=== PATIENT | female | born 1940 | race Caucasian/White ===

== ENCOUNTER 2019-11-22 10:26 | Outpatient (CLI) | payer MEDICARE, OTHER ==
--- NOTE | 2019-11-22 11:29 | SLEEP CARE CONSULTATION ---
Information from patient questionnaire entered by Jordana Greenberg. I have reviewed and concur with the information entered by Jordana Greenbreg. This document represents the service I personally performed and the decisions made by me, Nicolas Elizabeth MD, [facility]. History of Present Illness Service Date and Time: 11/22/2019 1026 Reason for Visit: New patient Chief Complaint: reports: Unrefreshed sleep, Snoring, Excessive daytime sleepiness, Fatigue Duration of Symptoms: long time Usual bedtime: 11 pm Time it takes to fall asleep: 30-60 mins Snores at night: Yes Observed to quit breathing while asleep: No Sleeps alone due to snoring: No Number of times waking at night: 2 Reasons for waking at night: reports: Snoring (sometimes), Bathroom Toss, Turn, or Twitch while sleeping: Yes Recalls having dreams: No Feels refreshed in the morning: No Morning headache: Yes Sleepy or fatigued during the day: Yes Takes day naps: Yes (sometimes) Dreams during day naps: No Prior sleep studies: No Additional HPI information: The patient is here mainly because her says she snore loudly. He has not seen her quit breathing. He uses a CPAP himself. The patient reports having some insomnia. She goes to bed at 11 pm and gets up at 9 am. - Parasomnia Symptoms Ever been unable to move upon waking from sleep: No Ever felt weak in the knees when startled or emotional: No Bothered by creepy, crawly, restless sensations in legs: Yes Problems with memory or concentration: Yes Subjective Initial [place] Sleepiness Scale score: 9 (in 2019) Past Medical History Past Medical History: reports: Arthritis Social History The patient's occupation is a Retired. Patient is and lives in [place]. Have you smoked in the past 12 months: No Cigarettes per day (20/pack): 20 Years of smokin Quit date: 1984 Smoking Pack Years: 30.0 Alcohol use: Yes Alcohol amount and frequency: 1 glass every couple of months Caffeine use: Yes Caffeine amount and frequency: 3 cups a day Family History Family history of sleep disordered breathing: Yes Family Hx Sleep Apnea: Sibling: Snoring Review of Systems Weight loss over past 5 years: 15 Cardiovascular: denies: high blood pressure, palpitations, chest pain, irregular heart rate or pulse, leg or foot swelling, have to sleep sitting up, other Respiratory: denies: shortness of breath, wheeze, sputum production, chronic cough, other Gastrointestinal: denies: heartburn, difficulty swallowing, nausea, vomitting, diarrhea, abdominal pain, other Urinary: denies: incontinence, frequency, urgency, impotence, other Neurological: denies: headaches, seizure, head trauma, disorientation, speech dysfunction, gait or balance problems, fainting or unconsciousness, other Psychiatric: denies: Attention Deficit Hyperactivity, anxiety, depression, mood disorder, claustrophobia, other Ear/Nose/Throat: reports: sinus problems, wisdom teeth removed Endocrine: reports: increased urination Musculoskeletal: reports: neck pain, back pain, muscle pain or cramping Immunologic: reports: sneezing, rash, itching Physical Exam Vital signs obtained and entered by: Deferred due to COVID-19 Height: 5 ft 3 in Weight: 176 lb Body Mass Index: 31.1 BMI Classification: Obese Impression and Plan IMPRESSION: 1. Obstructive Sleep Apnea-Hypopnea Syndrome, as suggested by history of loud and irregular snoring, unrefreshed sleep, nocturnal choking, and daytime hypersomnolence. Narrow oropharynx and obesity are common predisposing factors for obstructive sleep apnea-hypopnea syndrome. Pathophysiology of sleep- disordered breathing was discussed. I recommend proceeding to polysomnography to confirm the diagnosis and to assess severity. If she has significant sleep disordered breathing, a manual CPAP titration study will also be performed to find the optimal treatment pressure. I informed the patient of what the sleep studies involve and after some discussion, she agreed to proceed. Plan: 1. Schedule an in-laboratory polysomnography 2. Avoid long distance driving or when feeling sleepy. 3. Avoid alcohol, sedative and muscle relaxant around bedtime. 4. Attempt to lose weight. 5. Return in 1 to 2 weeks after the study to discuss results and initiate therapy. Visit Type: In Office Time Spent with Patient (minutes): 15 Provider Statement: I spent 100% of the Face to Face Visit with the patient with greater than 50% spent counseling the patient and coordination of care.
== END 2019-11-22 10:27 | disposition home or self-care (01) ==
LOC: SC 10:26
PROVIDERS: ATTEND Internal Medicine Pulmonary Disease
DX: G47.10 Hypersomnia, unspecified (principal); G47.00 Insomnia, unspecified; R06.83 Snoring; G47.8 Other sleep disorders; E66.9 Obesity, unspecified; Z68.31 Body mass index [BMI] 31.0-31.9, adult
CPT/HCPCS: 99203; G0463; 99212

== ENCOUNTER 2019-12-13 20:32 | Outpatient (CLI) | payer MEDICARE, OTHER | END 2019-12-13 20:33 | disposition home or self-care (01) | LOC: SC 20:32 | PROVIDERS: ATTEND Internal Medicine Pulmonary Disease | DX: G47.33 Obstructive sleep apnea (adult) (pediatric) (principal) | CPT/HCPCS: 95810 ==

== ENCOUNTER 2020-04-03 12:48 | Outpatient (CLI) | payer MEDICARE, OTHER | END 2020-04-03 12:49 | disposition EMS.NT | LOC: EMS 12:48 | PROVIDERS: ATTEND Surgery | DX: S09.90XA Unspecified injury of head, initial encounter (principal); Y00.XXXA Assault by blunt object, initial encounter; Y92.009 Unspecified place in unspecified non-institutional (private) residence as the place of occurrence of the external cause ==

== ENCOUNTER 2020-04-24 10:00 | Outpatient (CLI) | payer MEDICARE, OTHER ==
--- NOTE | 2020-04-24 10:43 | SLEEP CARE CONSULTATION ---
Information from patient questionnaire entered by Jordana Greenberg. I have reviewed and concur with the information entered by Jordana Greenberg. This document represents the service I personally performed and the decisions made by , Tati Aquino ARNP. History of Present Illness Service Date and Time: 04/24/2020 1000 Previous diagnosis: Moderate, Obstructive Sleep Apnea-Hypopnea Syndrome AHI: 21.6 (in 2019) Reason for follow up: first compliance Equipment type: CPAP Equipment obtained from: [employer] (getting supplies as needed) Mask style: Nasal Mask brand: Respironics Backup mask available: No (she will keep old mask when replaced) Last cushion change: 1 month Prior sleep studies: Yes Year and Where: 2019 - [facility] Type of Sleep Study: Polysomnography HPI additional information: HAI WHITAKER was diagnosed to have moderate, AHI 21.6, obstructive sleep apnea- hypopnea syndrome and returned today for CPAP therapy first compliance follow- up. CPAP Compliance Data - Data Reviewed with Patient Average duration of nightly device use: 8 hr 40 min Compliance rate %: 46.7 Current pressure setting (cmH2O): 4-15 Humidity settin Heated hose settin Average residual AHI: 3.2 Average large leak: 6 min 12 sec Subjective Missed days of use due to: reports: mask issues Patient concerns: reports: aerophagia (having some gas in the morning), condensation in mask/hose (condensation in mask), epistaxis (4 days in a row and stopped using machine). denies: mask discomfort, air blowing in eyes, mask leak noise, nasal congestion, dry mouth, nose, throat, other Observed to snore while using device: No Current pressure setting perceived as: too high On therapy, patient: reports: sleeping better, awakening more refreshed, being more awake and alert during the day, more rested overall. denies: drowsiness while driving Initial [place] Sleepiness Scale score: 9 (in 2019) Current [place] Sleepiness Scale score: 4 Allergies and Home Medications Drug allergies reviewed: Yes (codiene, erythromycin base, penicillins, morphine) Home medication list reviewed: Yes (started chemotherapy, 2 treatments) Review of Systems Review of systems same as previous: No (uterus cancer treatment started) Physical Exam Heart Rate: 61 O2 Saturation: 97 Height: 5 ft 3 in Weight: 181 lb Body Mass Index: 32.1 BMI Classification: Obese Impression and Plan 1. Obstructive Sleep Apnea-Hypopnea Syndrome, moderate, with poor treatment compliance and fair apnea control. On CPAP therapy, the patient has better sleep quality and is more rested overall. Patient has had some issue with waking up at 2 AM with water in the mask and then she had 4 days of morning epistaxis. I will have the discharge termination clerk reduce her humidity setting and show her how to adjust herself at home. She is on chemotherapy which may be contributing to the thinness of her nasal passages with the irritation of using the pressure from the CPAP machine. She was encouraged to adjust humidity to reduce nasal dryness and irritation which can contribute to epistaxis. She has also had some stomach bloating and increase morning flatus. She feels the pressure is too high. To reduce symptoms of aerophagia, the CPAP pressure will be reduced to 5-7 cmH2O. Patient advised to contact me if this does not reduce symptoms or if pressure change uncomfortable. Patient's apnea severity and rationale for treatment to reduce apnea, improve sleep quality and reduce cardiovascular and cerebrovascul ar events was reviewed. * Change autoCPAP pressure to 5-7 cmH2O * Notify me if snoring with mask or feeling that the pressure is too much or too little * Attempt to lose weight * Call this office if any problems using CPAP * Return for follow up in 1-2 months , or sooner if concerns arise Counseling Topics: Spare mask, Weight loss health impact Visit Type: In Office Time Spent with Patient (minutes): 20 Provider Statement: I spent 100% of the Face to Face Visit with the patient with greater than 50% spent counseling the patient and coordination of care.
== END 2020-04-24 10:01 | disposition home or self-care (01) ==
LOC: SC 10:00
PROVIDERS: ATTEND Nurse Practitioner Family
DX: G47.33 Obstructive sleep apnea (adult) (pediatric) (principal); E66.9 Obesity, unspecified; Z68.32 Body mass index [BMI] 32.0-32.9, adult
CPT/HCPCS: 99213; G0463; 99212

== ENCOUNTER 2020-05-22 10:45 | Outpatient (CLI) | payer MEDICARE, OTHER ==
--- NOTE | 2020-05-22 11:14 | SLEEP CARE CONSULTATION ---
Information from patient questionnaire entered by Jordana Greenberg. I have reviewed and concur with the information entered by Jordana Greenberg. This document represents the service I personally performed and the decisions made by , Tati Aquino ARNP. History of Present Illness Service Date and Time: 05/22/2020 1045 Previous diagnosis: Moderate, Obstructive Sleep Apnea-Hypopnea Syndrome AHI: 21.6 (in 2019) Reason for follow up: one month (with pressure change) Equipment type: CPAP Equipment obtained from: [employer] (no new supplies yet) Mask style: Nasal Mask brand: Respironics Backup mask available: Yes (other mask) Last cushion change: at least 6 weeks Prior sleep studies: Yes Year and Where: 2019 [facility] Type of Sleep Study: Polysomnography HPI additional information: HAI WHITAKER was diagnosed to have moderate, AHI 21.6, obstructive sleep apnea- hypopnea syndrome and returned today for CPAP therapy one month pressure change follow-up. CPAP Compliance Data - Data Reviewed with Patient Average duration of nightly device use: 8 hr 30 min Compliance rate %: 86.7 Current pressure setting (cmH2O): 5-7 Humidity settin Heated hose settin Average residual AHI: 2.0 Central apnea: 0.4 Obstructive apnea: 0.4 Average large leak: 14 min 56 sec Subjective Missed days of use due to: reports: illness Patient concerns: reports: mask leak noise (goes away with mask adjusting). denies: aerophagia, mask discomfort, air blowing in eyes, condensation in mask/hose, nasal congestion, dry mouth, nose, throat, epistaxis, other Observed to snore while using device: No Current pressure setting perceived as: comfortable On therapy, patient: reports: sleeping better, awakening more refreshed, being more awake and alert during the day, more rested overall. denies: drowsiness while driving Initial [place] Sleepiness Scale score: 9 (in 2019) Current [place] Sleepiness Scale score: 3 Allergies and Home Medications Drug allergies reviewed: Yes (see list in chart) Home medication list reviewed: Yes (no changes) Review of Systems Review of systems same as previous: Yes (still on chemotherapy- 3 more treatments, than 2 radiation treatments) Physical Exam Heart Rate: 61 O2 Saturation: 92 Height: 5 ft 3 in Weight: 183 lb Body Mass Index: 32.4 BMI Classification: Obese Impression and Plan 1. Obstructive Sleep Apnea-Hypopnea Syndrome, moderate, with good treatment compliance and good apnea control. On CPAP therapy, the patient has better sleep quality and is more rested overall. She has had some mask leak noises that reduce with adjusting the mask. She has not change the mask cushion since starting with the CPAP because she has not gotten any new supplies. Mask leaks can be reduced by washing mask daily and changing mask cushions more frequently to improve mask seal and comfort. I encouraged her to get in touch with [facility] about supplies. She voiced understanding and agreement. She is feeling comfortable with current pressure settings and machine use. I will have her fol low up in 3 months. she was instructed to call sooner with any pressure problems. Patient's apnea severity and rationale for treatment to reduce apnea, improve sleep quality and reduce cardiovascular and cerebrovascular events was reviewed. * Continue auto CPAP pressure at 5-7 cmH2O * Notify me if snoring with mask or feeling that the pressure is too much or too little * Attempt to lose weight * Call this office if any problems using CPAP * Return for follow up in 3 months , or sooner if concerns arise Counseling Topics: Spare mask, Weight loss health impact Visit Type: In Office Time Spent with Patient (minutes): 16 Provider Statement: I spent 100% of the Face to Face Visit with the patient with greater than 50% spent counseling the patient and coordination of care.
== END 2020-05-22 10:46 | disposition home or self-care (01) ==
LOC: SC 10:45
PROVIDERS: ATTEND Nurse Practitioner Family
DX: G47.33 Obstructive sleep apnea (adult) (pediatric) (principal); E66.9 Obesity, unspecified; Z68.32 Body mass index [BMI] 32.0-32.9, adult
CPT/HCPCS: 99213; G0463; 99212

== ENCOUNTER 2020-08-25 10:52 | Outpatient (CLI) | payer MEDICARE, OTHER ==
--- NOTE | 2020-08-25 11:25 | SLEEP CARE CONSULTATION ---
Information from patient questionnaire entered by Jordana Greenberg. I have reviewed and concur with the information entered by Jordana Greenberg. This document represents the service I personally performed and the decisions made by , Tati Aquino ARNP. History of Present Illness Service Date and Time: 08/25/2020 1052 Previous diagnosis: Moderate, Obstructive Sleep Apnea-Hypopnea Syndrome AHI: 21.6 (in 2019) Reason for follow up: three month Equipment type: CPAP Equipment obtained from: [facility] (getting supplies as needed) Mask style: Nasal Mask brand: Respironics Backup mask available: No (will keep mask once replaced) Last cushion change: 3 months Prior sleep studies: Yes Year and Where: 2019 [facility] Type of Sleep Study: Polysomnography HPI additional information: HAI WHITAKER was diagnosed to have moderate, AHI 21.6, obstructive sleep apnea- hypopnea syndrome and returned today for CPAP therapy 3 month follow-up. CPAP Compliance Data - Data Reviewed with Patient Average duration of nightly device use: 9 hr 12 min Compliance rate %: 94.4 (90 days) Current pressure setting (cmH2O): 5-7 Humidity settin Heated hose settin Average residual AHI: 2.3 Central apnea: 0.5 Obstructive apnea: 0.4 Hypopnea: 1.4 Average large leak: 5 min 17 sec Subjective Missed days of use due to: reports: family emergency ( in hospital), illness (on Chemo) Patient concerns: reports: dry mouth, nose, throat (only 3 times in last 3 months). denies: aerophagia, mask discomfort, air blowing in eyes, mask leak noise, condensation in mask/hose, nasal congestion, epistaxis, other Observed to snore while using device: No Current pressure setting perceived as: comfortable ( in hospital) On therapy, patient: reports: sleeping better, awakening more refreshed, being more awake and alert during the day, more rested overall. denies: drowsiness while driving Initial [place] Sleepiness Scale score: 9 (in 2019) Current [place] Sleepiness Scale score: 4 Allergies and Home Medications Drug allergies reviewed: Yes (codeine, erythromycin, penicillin) Home medication list reviewed: Yes (antibiotic for bladder infection (maybe Cipro)) Review of Systems Review of systems same as previous: No (bladder infection) Physical Exam Heart Rate: 59 O2 Saturation: 98 Height: 5 ft 3 in Weight: 179 lb Body Mass Index: 31.6 BMI Classification: Obese Impression and Plan 1. Obstructive Sleep Apnea-Hypopnea Syndrome, moderate, with good treatment compliance and good apnea control. On CPAP therapy, the patient has better sleep quality and is more rested overall. She does have dry mouth rarely and her humidity is at the setting 1. I advised her to increase the humidity setting if she starts having more regular oral dryness. She states that she has lost about 20 pounds since starting her chemotherapy. She has completed treatment and is scheduled for follow up at this time. I feel she is doing well with her CPAP therapy and we will follow up with her in about 6 months. Patient's apnea severity and rationale for treatment to reduce apnea, improve sleep quality and reduce cardiovascular and cerebrovascular events was reviewed. * Continue autoCPAP pressure at 5-7 cmH2O * Notify me if snoring with mask or feeling that the pressure is too much or too little * Continue to lose weight * Call this office if any problems using CPAP * Return for follow up in 6 months, or sooner if concerns arise Counseling Topics: Spare mask, Weight control Visit Type: In Office Time Spent with Patient (minutes): 17 Provider Statement: I spent 100% of the Face to Face Visit with the patient with greater than 50% spent counseling the patient and coordination of care.
--- OUTSIDE RECORDS SUMMARY | 2020-09-05 19:47 | EXTERNAL MEDICAL SUMMARY RPT | Continuity of Care Document ---
:1940 Demographics Phone Unavailable Preferred Language Sammarinese Marital Status Unknown Jehovah'S Witness Affiliation Unknown Race Unknown Ethnic Group Unknown Author Organization [place] Address [address] [phone] Phone Care Team Providers Name Role Phone Ocampo Unavailable Unavailable Miscellaneous Unavailable Unavailable Ocampo Unavailable Unavailable Problems date description facility [id number] Hypomagnesemia [facility] [id number] Malignant neoplasm of endometrium [facility] [id number] Malignant neoplasm of endometrium [facility] [id number] 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 [id number] Malignant neoplasm of endometrium [facility] [id number] Malignant neoplasm of endometrium [facility] [id number] Unspecified abdominal pain [facility] ital [id number] Malignant neoplasm of endometrium [facility] [id number] 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 [id number] Malignant neoplasm of endometrium [facility] Medications date description facility [id number] Prochlorperazine 10 MG [facility] [id number] gabapentin 100 MG Oral Capsule [facility] Procedures date description facility [id number] [facility] date description facility [id number] Diagnosis [facility] date description facility [id number] [facility] date description facility [id number] [facility] Vital Signs date measurement value source [id number] respiration_rate 18 /min [id number] temperature_metric 36.44 C 20200706 temperature_standard 97.6 F date measurement value source 20200710 BMI 31.4 kg/m2 20200710 BP_diastolic 66 mm[Hg] 20200710 BP_systolic 132 mm[Hg] 20200710 heart_rate 82 /min 20200710 height_metric 160.02 cm 20200710 height_standard 63 in [id number] weight_metric 36.49 kg [id number] weight_standard 80.46 lb Social History date description facility [id number]
== END 2020-08-25 10:53 | disposition home or self-care (01) ==
LOC: SC 10:52
PROVIDERS: ATTEND Nurse Practitioner Family
DX: G47.33 Obstructive sleep apnea (adult) (pediatric) (principal); E66.9 Obesity, unspecified; Z68.31 Body mass index [BMI] 31.0-31.9, adult
CPT/HCPCS: 99212; G0463

== ENCOUNTER 2023-05-23 08:57 | Outpatient (CLI) | payer MEDICARE, OTHER | END 2023-05-23 23:59 | disposition short-term general hospital (02) | LOC: EMS 08:57 | DX: R11.2 Nausea with vomiting, unspecified (principal); R05.9 Cough, unspecified; R07.89 Other chest pain; R53.1 Weakness; R06.00 Dyspnea, unspecified | CPT/HCPCS: A0425; A0429; A0888 ==